=== PATIENT | female | born 1995 | race Caucasian/White ===

== ENCOUNTER → 2017-12-11 | Outpatient (CLI) | payer OTHER ==
[~2017-12-11] MED LIST: AMLO5 PO; BC PILL; BUSP15; IBUP600 PO; Lamictal150 MG; MEDR150I; MICROZIDE12.5 MG; Norco 5-325 Ta1 EACH PO; Omeprazole20 M1; RANI150; TRAZ50; VENL75ER PO; Veetids 500500 MG PO; Zofran Odt4 MG SL
== END | disposition home or self-care (01) ==
LOC: OLS 17:07
DX: R10.13 Epigastric pain (principal); R11.10 Vomiting, unspecified; R63.4 Abnormal weight loss
CPT/HCPCS: 87338

== ENCOUNTER 2018-01-14 09:25 | Day surgery (SDC) | payer OTHER ==
[~2018-01-14] VITALS: Ht 160 cm; Wt 64.5 kg
[~2018-01-14 09:25] MED LIST changes: -BUSP15; -Lamictal150 MG; -MICROZIDE12.5 MG; -Omeprazole20 M1; -RANI150; -TRAZ50
[2018-01-14] MEDS ORDERED: MICROZIDE12.5 MG (09:54)
[2018-01-14] MEDS ORDERED: Lamictal150 MG (09:54)
[2018-01-14] MEDS ORDERED: BUSP15 (09:55)
[2018-01-14] MEDS ORDERED: Omeprazole20 M1 (09:55)
[2018-01-14] MEDS ORDERED: TRAZ50 (09:55)
[2018-01-14] MEDS ORDERED: RANI150 (09:55)
== END 2018-01-14 10:51 | disposition home or self-care (01) ==
LOC: ORSCSDS 09:25
PROVIDERS: Internal Medicine Gastroenterology
PROC: 0DB98ZX Excision of Duodenum, Via Natural or Artificial Opening Endoscopic, Diagnostic (ICD-10-PCS; principal; 2018-01-14 10:45)
PROC: 0DB68ZX Excision of Stomach, Via Natural or Artificial Opening Endoscopic, Diagnostic (ICD-10-PCS; principal; 2018-01-14 10:45)
DX: R11.2 Nausea with vomiting, unspecified (principal); R10.13 Epigastric pain; R19.7 Diarrhea, unspecified; I10 Essential (primary) hypertension; F41.8 Other specified anxiety disorders; E66.9 Obesity, unspecified; Z68.30 Body mass index [BMI] 30.0-30.9, adult; Z79.899 Other long term (current) drug therapy
CPT/HCPCS: 88305; 88342; J2250; J7120

== ENCOUNTER → 2019-01-07 | Outpatient (CLI) | payer OTHER ==
[~2019-01-07] MED LIST changes: +BUSP15; +Lamictal150 MG; +MICROZIDE12.5 MG; +Omeprazole20 M1; +RANI150; +TRAZ50
== END | disposition home or self-care (01) ==
LOC: LAB 15:44 → LAB SHORT 15:44
PROVIDERS: Obstetrics & Gynecology
DX: Z01.419 Encounter for gynecological examination (general) (routine) without abnormal findings (principal)
CPT/HCPCS: G0123

== ENCOUNTER → 2019-05-28 | Outpatient (CLI) | payer OTHER ==
[~2019-05-28] MED LIST changes: +ACET325; +Advil200 M1; +BC PATCH; +ONDA4ODT MM; +XULANE PATCH1 EACH
[2019-05-28 13:17] LABS: Adenovirus F 40/41 Not Detected (NOT DETECT); Astrovirus Not Detected (NOT DETECT); Campylobacter Sp Not Detected (NOT DETECT); Cryptosporidium Not Detected (NOT DETECT); Cyclospora Cayetanensis Not Detected (NOT DETECT); E. Coli O157 Not Detected (NOT DETECT); Entamoeba Histolytica Not Detected (NOT DETECT); Enteroaggregative E. coli-EAEC Not Detected (NOT DETECT); Enteropathogenic E. coli-EPEC Not Detected (NOT DETECT); Enterotoxigenic E. coli-ETEC Not Detected (NOT DETECT); Giardia Lamblia Not Detected (NOT DETECT); Norovirus GI/GII Not Detected (NOT DETECT); Plesiomonas Shigelloides Not Detected (NOT DETECT); Rotavirus A Not Detected (NOT DETECT); Salmonella Sp Not Detected (NOT DETECT); Sapovirus Not Detected (NOT DETECT); Shiga Toxin-prod E. coli-STEC Not Detected (NOT DETECT); Shigella/Enteroin E. coli-EIEC Not Detected (NOT DETECT); Vibrio Cholerae Not Detected (NOT DETECT); Vibrio Sp Not Detected (NOT DETECT); Yersinia Enterocolitica Not Detected (NOT DETECT)
== END | disposition home or self-care (01) ==
LOC: LAB SHORT 10:53 → LAB 10:53 → LAB FUT 05-27 10:20
PROVIDERS: Internal Medicine Gastroenterology
DX: R19.7 Diarrhea, unspecified (principal); R10.84 Generalized abdominal pain; R63.4 Abnormal weight loss
CPT/HCPCS: 0097U; 83993

== ENCOUNTER 2019-06-01 21:12 | Emergency (ER) | payer OTHER ==
[~2019-06-01] VITALS: Ht 160 cm; Wt 59.4 kg
[~2019-06-01 21:12] MED LIST changes: -ACET325; -Advil200 M1; -BC PATCH; -ONDA4ODT MM; -XULANE PATCH1 EACH
[2019-06-01 22:10] LABS: BASOPHILS ABSOLUTE AUTO 0.07 K/mm3 (0.00-0.23); BASOPHILS PERCENT AUTO 1 % (0-2); EOSINOPHILS PERCENT AUTO 3 % (0-6); Hematocrit 39.3 % (33.0-51.0); Hemoglobin 13.2 g/dL (11.5-16.0); IMMATURE GRAN ABSOLUTE AUTO 0.03 K/mm3 (0.00-0.10); IMMATURE GRAN PERCENT AUTO 0 % (0-1); LYMPHOCYTES ABSOLUTE AUTO 2.81 K/mm3 (0.84-5.20); LYMPHOCYTES PERCENT AUTO 28 % (21-46); MONOCYTES ABSOLUTE AUTO 0.54 K/mm3 (0.16-1.47); MONOCYTES PERCENT AUTO 6 % (4-13); Mean Corpuscular HGB 30.4 pg (26.0-34.0); Mean Corpuscular HGB Conc 33.6 g/dL (31.5-36.5); Mean Corpuscular Volume 91 fL (80-100); Mean Platelet Volume 10.4 fL (9.1-12.4); NEUTROPHILS ABSOLUTE AUTO 6.15 K/mm3 (1.96-9.15); NEUTROPHILS PERCENT AUTO 62 % (41-73); Platelet Count 305 K/mm3 (150-400); RDW Coefficient Variation 12.1 % (11.7-14.2); Red Blood Cell Count 4.34 M/mm3 (3.80-5.20)
[2019-06-01 22:24] LABS: Alanine Aminotransfer (ALT/SGP 21 U/L (12-78); Albumin, Blood 4.2 g/dL (3.4-5.0); Albumin/Globulin Ratio 1.1 (0.8-1.8); Alk Phos 38 U/L (50-136); Anion Gap 6 mmol/L (6-16); Aspartate Aminotrans (AST/SGOT 14 U/L (12-37); Bilirubin, Total 0.5 mg/dL (0.1-1.0); Blood Urea Nitrogen 12 mg/dL (8-24); Bun/Creatinine Ratio 14.3 (12.0-20.0); CO2, Blood 28 mmol/L (21-32); Calcium, Blood 9.2 mg/dL (8.5-10.1); Chloride, Blood 105 mmol/L (98-108); Creatinine, Blood 0.84 mg/dL (0.40-1.00); Globulin, Blood 3.9 g/dL (2.2-4.0); Glomerular Filtration Rate >60 (60-); Glucose, Blood 85 mg/dL (70-99); Potassium, Blood 3.7 mmol/L (3.5-5.5); Sodium, Blood 139 mmol/L (136-145); Total Protein, Blood 8.1 g/dL (6.4-8.2)
[2019-06-02] MEDS ORDERED: ONDA4ODT MM (00:41)
== END 2019-06-02 00:49 | disposition home or self-care (01) ==
LOC: ER 21:12
PROVIDERS: Emergency Medicine
DX: R11.2 Nausea with vomiting, unspecified (principal); I10 Essential (primary) hypertension; Z79.899 Other long term (current) drug therapy
CPT/HCPCS: 36415; 80053; 83690; 84703; 85025; 96374; 99283-25; A9270-GY; J2405

== ENCOUNTER 2019-06-09 07:10 | Day surgery (SDC) | payer OTHER ==
[~2019-06-09] VITALS: Ht 160 cm; Wt 57.8 kg
[~2019-06-09 07:10] MED LIST changes: +ONDA4ODT MM
[2019-06-09] MEDS ORDERED: BC PATCH (08:22)
[2019-06-09] MEDS ORDERED: ACET325 (08:23)
[2019-06-09] MEDS ORDERED: XULANE PATCH1 EACH (08:23)
[2019-06-09] MEDS ORDERED: Advil200 M1 (08:23)
--- NOTE | 2019-06-09 09:09 | NUR ---
06/09/19 0909 Benjamin Ha LATE ENTRY: PT HARD TO SEDATE ENOUGH TO START PROCEDURE. DR BHATIA INTO ROOM PER DR AALNIZ REQUEST. MEDICATION ADMINISTRATION DICTATED BY DR BHATIA AND ADMINISTERED BY NURSE WHILE HE IS IN THE ROOM. SEE MEDICATION FLOW SHEET FOR THIS INFORMATION. VSS T/O.
--- NOTE | 2019-06-09 09:57 | NUR ---
06/09/19 0957 Benjamin Ha LATE ENTRY: IN STEP DOWN PT STATES SHE FEEL "A LITTLE" NAUSEOUS. PROVIDED 7UP. PT STATES IT FEELS BETTER AFTER SIPPING ON 7UP. PT STATES READY FOR DISCHARGE.
== END 2019-06-09 23:59 | disposition home or self-care (01) ==
LOC: ORSCSDS 07:10
PROVIDERS: Internal Medicine Gastroenterology
PROC: 0DB98ZX Excision of Duodenum, Via Natural or Artificial Opening Endoscopic, Diagnostic (ICD-10-PCS; principal; 2019-06-09 08:30)
PROC: 0DBE8ZX Excision of Large Intestine, Via Natural or Artificial Opening Endoscopic, Diagnostic (ICD-10-PCS; principal; 2019-06-09 08:30)
PROC: 0DB68ZX Excision of Stomach, Via Natural or Artificial Opening Endoscopic, Diagnostic (ICD-10-PCS; principal; 2019-06-09 08:30)
DX: R19.7 Diarrhea, unspecified (principal); R10.84 Generalized abdominal pain; R11.2 Nausea with vomiting, unspecified; I10 Essential (primary) hypertension; K21.9 Gastro-esophageal reflux disease without esophagitis; Z87.891 Personal history of nicotine dependence; Z79.899 Other long term (current) drug therapy
CPT/HCPCS: 88305; 88342; J2250; J2704; J7120

== ENCOUNTER 2023-07-31 16:55 | Emergency (ER) | payer OTHER ==
[~2023-07-31] VITALS: Ht 160 cm; Wt 61.2 kg
[~2023-07-31 16:55] MED LIST changes: +ACET325; +Advil200 M1; +Amoxicillin500 MG PO; +BC PATCH; +XULANE PATCH1 EACH
[2023-07-31 17:48] LABS: Source, Urine Clean Catch
[2023-07-31 17:50] LABS: Appearance, Urine Clear (Clear); Bilirubin, Urine Neg (Neg); Blood, Urine Neg (Neg); Color, Urine Yellow (P-Yellow); Glucose Qualitative, Urine Neg (Neg); Ketones, Urine Neg (Neg); Leukocyte Esterase, Urine Neg (Neg); Nitrite, Urine Neg (Neg); Protein, Urine Neg (Neg); Urobilinogen, Urine NORM (Normal)
[2023-07-31 22:01] VITALS: BP 129/102
== END 2023-07-31 22:14 | disposition home or self-care (01) ==
LOC: ER 16:55
PROVIDERS: Physician Assistant
DX: O20.8 Other hemorrhage in early pregnancy (principal); O10.911 Unspecified pre-existing hypertension complicating pregnancy, first trimester; Z3A.01 Less than 8 weeks gestation of pregnancy; Z79.899 Other long term (current) drug therapy
CPT/HCPCS: 76801; 81003; 84702; 99284-25

== ENCOUNTER → 2023-10-29 | Outpatient (CLI) | payer OTHER | END | disposition home or self-care (01) | LOC: LAB SHORT 12:00 → LAB 12:00 | PROVIDERS: Advanced Practice Midwife | DX: Z09 Encounter for follow-up examination after completed treatment for conditions other than malignant neoplasm (principal); Z87.59 Personal history of other complications of pregnancy, childbirth and the puerperium | CPT/HCPCS: 81050; 84156 ==

== ENCOUNTER → 2024-02-06 | Outpatient (CLI) | payer OTHER | END | disposition home or self-care (01) | LOC: LAB SHORT 12:19 → LAB 12:19 | DX: O09.892 Supervision of other high risk pregnancies, second trimester (principal) ==

== ENCOUNTER → 2024-08-25 | Outpatient (CLI) | payer OTHER ==
[~2024-08-25] MED LIST changes: +ADALAT CC30 M1 PO; +Aspir 8181 MG PO; +FERSU300 PO; +PRENATAL TABLE1 EAC2 PO; +SERT100 PO
== END | disposition home or self-care (01) ==
LOC: LAB SHORT 14:05 → LAB 14:05
DX: J02.9 Acute pharyngitis, unspecified (principal)
CPT/HCPCS: 87081

== ENCOUNTER → 2025-03-26 | Outpatient (CLI) | payer OTHER ==
[2025-03-26 21:42] LABS: Bacterial Vaginosis PCR Negative (NEGATIVE); Candida Group, PCR NOT DETECTED (NOT DETECT); Candida glabrata-krusei, PCR NOT DETECTED (NOT DETECT)
== END | disposition home or self-care (01) ==
LOC: LAB SHORT 16:28 → LAB 16:28
PROVIDERS: Nurse Practitioner
DX: N89.8 Other specified noninflammatory disorders of vagina (principal)
CPT/HCPCS: 81515

== ENCOUNTER → 2025-06-29 | Outpatient (CLI) | payer OTHER | LOC: LAB 16:10 → LAB SHORT 16:10 | PROVIDERS: Advanced Practice Midwife | DX: Z01.419 Encounter for gynecological examination (general) (routine) without abnormal findings (principal) | CPT/HCPCS: G0145 ==

== ENCOUNTER → 2025-08-23 | Outpatient (CLI) | payer OTHER ==
[2025-08-23 15:28] LABS: Source, Urine Clean Catch
[2025-08-23 18:03] LABS: Bilirubin, Urine Neg (Neg); Glucose Qualitative, Urine Neg (Neg); Ketones, Urine Neg (Neg); Leukocyte Esterase, Urine Neg (Neg); Protein, Urine Neg (Neg); Specific Gravity, Urine 1.010 (1.003-1.022); Urobilinogen, Urine NORM (Normal)
[2025-08-23 18:13] LABS: Color, Urine Pale Yellow (P-Yellow)
== END | disposition home or self-care (01) ==
LOC: LAB SHORT 15:27 → LAB 15:27
PROVIDERS: Advanced Practice Midwife
DX: Z34.01 Encounter for supervision of normal first pregnancy, first trimester (principal)
CPT/HCPCS: 81003

== ENCOUNTER 2025-09-26 07:25 | Observation (INO) | payer OTHER ==
[~2025-09-26] VITALS: Ht 160 cm; Wt 71.0 kg
[2025-09-26 07:32] VITALS: BP 142/94
[2025-09-26] MEDS ORDERED: DiphenhydrAMINE HCl 50 MG/ML 1ML Vial IV ONE (07:50)
[2025-09-26] MEDS ORDERED: Ondansetron HCl 2 MG / ML 2ML Vial IV ONE (08:35)
[2025-09-26] MEDS ORDERED: Pantoprazole Sodium 40 MG Injection IV ONE (08:45)
[2025-09-26 08:57] VITALS: BP 128/86
[2025-09-26 12:17] LABS: BASOPHILS ABSOLUTE AUTO 0.04 K/mm3 (0.00-0.23); BASOPHILS PERCENT AUTO 0 % (0-2); EOSINOPHILS ABSOLUTE AUTO 0.01 K/mm3 (0.00-0.68); EOSINOPHILS PERCENT AUTO 0 % (0-6); Hematocrit 32.3 % (33.0-51.0); Hemoglobin 11.2 g/dL (11.5-16.0); IMMATURE GRAN ABSOLUTE AUTO 0.16 K/mm3 (0.00-0.10); IMMATURE GRAN PERCENT AUTO 1 % (0-1); LYMPHOCYTES ABSOLUTE AUTO 1.55 K/mm3 (0.84-5.20); LYMPHOCYTES PERCENT AUTO 8 % (21-46); MONOCYTES ABSOLUTE AUTO 0.59 K/mm3 (0.16-1.47); MONOCYTES PERCENT AUTO 3 % (4-13); Mean Corpuscular HGB Conc 34.7 g/dL (31.5-36.5); Mean Corpuscular Volume 92 fL (80-100); NEUTROPHILS ABSOLUTE AUTO 17.50 K/mm3 (1.96-9.15); NEUTROPHILS PERCENT AUTO 88 % (41-73); NRBC ABSOLUTE 0.00 K/mm3 (0.00-0.02); NRBC Auto 0.0 /100 WBC (0.0-0.2); Platelet Count 323 K/mm3 (150-400); RDW Coefficient Variation 12.2 % (11.7-14.2); RDW Standard Deviation 40.3 fL (35.1-46.3)
[2025-09-26 12:38] LABS: Alanine Aminotransfer (ALT/SGP 20.0 U/L (12-78); Albumin, Blood 2.9 g/dL (3.4-5.0); Albumin/Globulin Ratio 0.7 (0.8-1.8); Amylase, Blood 107.0 U/L (25-115); Anion Gap 6.0 mmol/L (3-11); Aspartate Aminotrans (AST/SGOT 17.0 U/L (12-37); Bilirubin, Total 0.3 mg/dL (0.1-1.0); Blood Urea Nitrogen 13.0 mg/dL (8-24); CO2, Blood 30.0 mmol/L (21-32); Calcium, Blood 10.3 mg/dL (8.5-10.1); Chloride, Blood 103.0 mmol/L (98-108); Creatinine, Blood 0.88 mg/dL (0.40-1.00); Globulin, Blood 4.4 g/dL (2.2-4.0); Glucose, Blood 109.0 mg/dL (70-99); Potassium, Blood 4.0 mmol/L (3.5-5.5); Sodium, Blood 135.0 mmol/L (136-145); Total Protein, Blood 7.3 g/dL (6.4-8.2)
[2025-09-26 12:43] VITALS: BP 117/72
[2025-09-26] MEDS ORDERED: Metoclopramide HCl 5MG / ML 2ML Vial IV ONE (12:55)
[2025-09-26] MEDS ORDERED: Ondansetron HCl 2 MG / ML 2ML Vial IV PRN (13:15)
[2025-09-26] MEDS ORDERED: Metoclopramide HCl 5MG / ML 2ML Vial IV PRN (13:25)
[2025-09-26] MEDS ORDERED: DiphenhydrAMINE HCl 50 MG/ML 1ML Vial IV PRN (14:00)
[2025-09-26] MEDS ORDERED: DiphenhydrAMINE HCl 50 MG/ML 1ML Vial ONE (14:02)
[2025-09-26] MEDS ORDERED: ONDA4ODT MM (15:25)
[2025-09-26] MEDS ORDERED: ASPI325 PO (15:25)
[2025-09-26] MEDS ORDERED: METO10 PO (15:26)
[2025-09-26] MEDS ORDERED: SERT50 PO (15:27)
[2025-09-26] MEDS ORDERED: Mag Hydrox/Al Hydrox/Simeth 18 ML,Lidocaine 2% Viscous Soln 9 ML,Atropine/Scopalam/Hyos... PO ONE (17:10)
[2025-09-26 17:36] VITALS: BP 121/74
[2025-09-26 19:35] VITALS: BP 117/66
[2025-09-26 21:17] VITALS: BP 120/75
--- NOTE | 2025-09-27 00:10 | NUR ---
DISCHARGE TO HOME PT REQUESTING TO DISCHARGE TO HOME. REPORTS FEELING BETTER FOLLOWING 45 MINUTE NAP. JUANADE UPDATED ON PT STATUS/REQUEST AND VERBAL ORDERS FOR DISCHARGE PROVIDED. IV REMOVED, PT DISCHARGED WITH PERSONAL BELONGINGS AND PROVIDED EMESIS BAGS. PT EDUCATED ON WHEN TO RETURN TO [facility] WITH CONCERNS.
== END 2025-09-26 21:38 | disposition home or self-care (01) ==
LOC: BC 07:25 → OBS 07:25 → BC 13:34
PROVIDERS: ADMIT Advanced Practice Midwife
DX: O21.0 Mild hyperemesis gravidarum (principal); O99.891 Other specified diseases and conditions complicating pregnancy; R10.10 Upper abdominal pain, unspecified; Z3A.25 25 weeks gestation of pregnancy
CPT/HCPCS: 36415; 76705; 80053; 81003; 82150; 83690; 85025; 93005; 93010; 96361; 96374; 96375; 96376; 99213; A9270; J1200; J2405; J2470; J2765; J7120